=== PATIENT | male | born 1935 | race Caucasian/White ===

== ENCOUNTER 2021-11-16 14:02 | Outpatient (CLI) | payer MEDICARE, OTHER | END 2021-11-16 14:03 | disposition home or self-care (01) | LOC: CSHCP 14:02 | PROVIDERS: ATTEND Internal Medicine Pulmonary Disease | DX: J44.9 Chronic obstructive pulmonary disease, unspecified (principal) | CPT/HCPCS: 94060; 94726; 94729; 94760 ==